=== PATIENT | female | born 1975 | race African-American/Black ===

== ENCOUNTER 2020-01-22 22:58 | Inpatient (IN) | payer MEDICAID ==
--- NOTE | 2020-01-22 23:21 | ED ---
Psychiatric Complaint - HPI Summary HPI Summary: Patient is a 44 y/o F presenting to the ED via EMS on a code 941 for a psychiatric complaint. Patient endorses self-harming in the last day and has a laceration on the left forearm which she notes self-inflicting on 01/21/20. Currently, she expresses SI and auditory hallucinations. She has a plan to use a knife or "anything she has" to harm herself. She notes an attempt to commit suicide in the past. Patient also describes hearing "voices" that are telling her to harm herself. No aggravating or alleviating factors are reported. PMHx is significant for DM. PSHx is significant for right leg surgery and hernia repair. FMHx is unknown because patient is adopted. Patient admits tobacco use, marijuana use, and alcohol use. She denies alcohol or drug use on 01/22/20. HISTORY OF PRESENT ILLNESS IS LIMITED DUE TO LEVEL 5 CAVEAT - POOR HISTORIAN. - History Of Current Complaint Chief Complaint: EDSuicidal Time Seen by Provider: 01/22/20 23:18 Hx Obtained From: Patient Hx From Patient Unobtainable Due To: Other - LEVEL 5 CAVEAT - POOR HISTORIAN Onset/Duration: Sudden Onset, Still Present Timing: Constant Severity Initially: Moderate Severity Currently: Moderate Aggravating Factor(s): Nothing Alleviating Factor(s): Nothing Associated Signs And Symptoms: Positive: Hallucinating - Auditory Has Suicidal: Reports: Thoughts, With A Plan, Has Prior Attempt(s) - Allergies/Home Medications Allergies/Adverse Reactions: Allergies Allergy/AdvReac Type Severity Reaction Status Date / Time Unable to Assess Allergy Verified 01/23/20 00:41 Home Medications: Home Medications Unobtainable 01/23/20 [History Confirmed 01/23/20] PMH/Surg Hx/FS Hx/Imm Hx Previously Healthy: No - LIMITED DUE TO LEVEL 5 CAVEAT - POOR HISTORIAN. Endocrine/Hematology History: Reports: Hx Diabetes Sensory History: Denies: Hx Legally Blind, Hx Deafness Opthamlomology History: Denies: Hx Legally Blind EENT History: Denies: Hx Deafness - Surgical History Surgical History: Yes Surgery Procedure, Year, and Place: Right leg surgery with dell placement. Hernia repair Infectious Disease History: No Infectious Disease History: Denies: Traveled Outside the [place] in Last 30 Days - Family History Known Family History: Positive: Unknown - Adopted - Social History Occupation: Unemployed Alcohol Use: Weekly Hx Substance Use: Yes Substance Use Type: Reports: Marijuana Hx Tobacco Use: Yes Smoking Status (MU): Heavy Every Day Tobacco Smoker Review of Systems - ROS Summary Review of Systems Summary: No Home Medications Positive: Other - Positive laceration on the left forearm Psychological: Other - Positive SI and auditory hallucinations All Other Systems Reviewed And Are Negative: No - Comments Additional Review of Systems Comments: REVIEW OF SYSTEMS IS LIMITED DUE TO LEVEL 5 CAVEAT - POOR HISTORIAN. Physical Exam - Summary Physical Exam Summary: General: Well-developed, Morbidly Obese Female. No acute distress. Patient is a poor historian. HEENT: Normocephalic, Atraumatic. Eyes: Conjuctiva normal, PERRL. Oropharynx: Clear, mucous membranes moist, (-) exudates. Neck: Soft, FROM, (-) lymphadenopathy, (-) thyromegaly, (-) JVD. Cardiovascular: Normal sinus rhythm, (-) murmur. Lungs: Clear to auscultation bilaterally (-) wheezes, (-) rales, (-) rhonchi. Abdomen: Soft, non-tender, non-distended, (-) organomegaly, normal bowel sounds. Back: (-) CVA tenderness Extremities: No edema. Skin: Warm, dry, (-) rash. Neuro: Alert and oriented x3, moves all extremities equally. No ataxia. No gait disturbance. No sensory deficit. Normal strength, normal sensation. Psychiatric: Mood normal, odd affect. Triage Information Reviewed: Yes Vital Signs On Initial Exam: Initial Vitals Temp Pulse Resp BP Pulse Ox 97.6 F 96 18 135/96 98 01/22/20 23:03 01/22/20 23:03 01/22/20 23:03 01/22/20 23:03 01/22/20 23:03 Vital Signs Reviewed: Yes Completion Of Physical Exam Limited Due To: Level 5 Procedures - Sedation Patient Received Moderate/Deep Sedation with Procedure: No Diagnostics - Vital Signs Vital Signs Temp Pulse Resp BP Pulse Ox 01/22/20 23:03 97.6 F 96 18 135/96 98 - Laboratory Result Diagrams: 01/22/20 23:58 01/22/20 23:58 Lab Statement: Any lab studies that have been ordered have been reviewed, and results considered in the medical decision making process. Re-Evaluation - Re-Evaluation First Eval Re-Evaluation Time: 23:30 Change: Unchanged Comment: At 23:30, patient is medically cleared for a mental health evaluation. Course/Dx - Course Course Of Treatment: 44-year-old female presents from respite home with suicidal ideation. Patient states she has been having thoughts of hurting herself and voices telling her to do that. She does have a history of suicide attempt. Has a 5 cm laceration of her left wrist which she states was from yesterday. She is a very poor historian. History of schizophrenia. Unsure how long she's been at the respite home. Unsure what medications she takes. She has an odd affect. Healing laceration on her left arm. Workup demonstrates no significant abnormality. Patient seen by mental health telecommunications project manager. Accepted for admission by Dr. Strong. - Differential Dx/Clinical Impression Provider Diagnosis: Tobacco use, Schizophrenia - Physician Notifications Discussed Care Of Patient With: Jessie Strong - At 02:00, telecommunications project manager reports that the patients case was reviewed by Dr. Jessie Strong who will admit the patient to [facility] with a diagnosis of schizophrenia. Time Discussed With Above Provider: 02:00 Instructed by Provider To: Admit As Inpatient Discharge ED - Sign-Out/Discharge Documenting (check all that apply): Patient Departure - Admit - Discharge Plan Condition: Stable Disposition: PSYCHIATRIC FACILITY-[facility] Referrals: [facility] [Outside] - Attestation Statements Document Initiated by Scribe: Yes Documenting Scribe: Richa Maravilla Provider For Whom Scribe is Documenting (Include Credential): Meera Gautam MD [employer] Attestation: Richa Durant, scribed for Meera Gautam MD on 01/23/20 at 0215. Status of Scribe Document: Ready
[2020-01-22 23:49] LABS: Urine Appearance Clear; Urine Bilirubin Negative (Negative); Urine Blood Negative (Negative); Urine Color Straw; Urine Glucose 3+(>=500 mg/dL) (Negative); Urine Ketones Trace (Negative); Urine Nitrite Negative (Negative); Urine Protein Negative (Negative); Urine Specific Gravity 1.003 (1.010-1.030); Urine Urobilinogen Negative (Negative)
[2020-01-23 00:15] LABS: Urine Benzodiazepine Screen None Detected (None Detect); Urine Opiates Screen None Detected (None Detect)
[2020-01-23 00:17] LABS: ABS Basophils 0.1 10^3/ul (0-0.2); ABS Eosinophils 0.2 10^3/ul (0-0.6); ABS Lymphocytes 2.2 10^3/ul (1.0-4.8); ABS Monocytes 0.6 10^3/ul (0-0.8); Hematocrit 34 % (35-47); Hemoglobin 11.1 g/dL (12.0-16.0); Mean Corpuscular HGB Conc 33 g/dL (31-36); Mean Corpuscular Hemoglobin 28 pg (27-31); Mean Corpuscular Volume 85 fL (80-97); Mean Platelet Volume 7.5 fL (7.4-10.4); Platelet Count 230 10^3/uL (150-450); Red Blood Count 3.96 10^6 /uL (3.70-4.87); Red Cell Distribution Width 14 % (10-15)
[2020-01-23 00:29] LABS: ALT 10 U/L (7-52); AST 12 U/L (13-39); Albumin 3.9 g/dL (3.2-5.2); Albumin/Globulin Ratio 1.5 (1-3); Alkaline Phosphatase 76 U/L (34-104); Anion Gap 9 mmol/L (2-11); BUN/Creatinine Ratio 22.6 (8-20); Blood Urea Nitrogen 19 mg/dL (6-24); CO2 Carbon Dioxide 25 mmol/L (22-32); Calcium 9.3 mg/dL (8.6-10.3); Chloride 97 mmol/L (101-111); EGFR Non-African American 74.4 (>60); Globulin 2.6 g/dL (2-4); Glucose 217 mg/dL (70-100); Sodium 131 mmol/L (135-145); Total Protein 6.5 g/dL (6.4-8.9)
[2020-01-23 00:36] LABS: HCG Pregnancy < 0.60 mIU/mL
[2020-01-23 02:01] LABS: Acetaminophen < 15 mcg/mL; Alcohol < 10 mg/dL (<10); Salicylate < 2.50 mg/dL (<30)
[2020-01-23 02:16] LABS: TSH (Thyroid Stimulating Horm) 15.14 mcIU/mL (0.34-5.60)
[2020-01-23] MEDS ORDERED: Al Hydrox/Mg Hydrox/Simet LIQ* 30 ML UDC PO PRN (02:47)
[2020-01-23] MEDS ORDERED: Acetaminophen TAB* 325 MG PO PRN (02:47)
[2020-01-23] MEDS ORDERED: Nicotine* 2MG (FRUIT FLAVOR) GUM PO PRN (02:47)
[2020-01-23] MEDS: Vitamin THERAPEUTIC TAB PO SCH (08:43)
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
[2020-01-23] MEDS ORDERED: hydrOXYzine HCL TAB* 50 MG PO PRN (10:46)
[2020-01-23] MEDS ORDERED: PAROXETINE HCL 40 MG PO SCH (11:00)
[2020-01-23] MEDS ORDERED: Divalproex ER TAB(*) 500 MG PO SCH (11:00)
[2020-01-23] MEDS: busPIRone TAB* 10 MG PO SCH ×2 (11:52→20:20)
[2020-01-23] MEDS: Ascorbic Acid TAB* 500 MG PO SCH (11:52)
[2020-01-23] MEDS: Pantoprazole TAB * 40 MG TAB PO SCH (11:53)
[2020-01-23] MEDS: Levothyroxine TAB* 88 MCG TAB PO SCH (11:53)
[2020-01-23] MEDS: Divalproex ER TAB(*) 250 MG PO SCH (11:53)
[2020-01-23] MEDS: QUEtiapine TAB* 300 MG PO SCH (11:53)
[2020-01-23] MEDS: amLODIPine TAB* 5 MG PO SCH (11:53)
[2020-01-23] MEDS: Ferrous Sulfate TAB* 325 MG PO SCH (11:53)
[2020-01-23] MEDS: CMCS:Venlafaxine TAB (NF) 25 MG TAB PO SCH (11:54)
[2020-01-23] MEDS: Nicotine PATCH 14 MG/24 HR* PATCH TRANSDERM SCH (11:55)
[2020-01-23] MEDS: Norethindrone (NF) 0.35 MG TAB PO SCH (11:55)
[2020-01-23] MEDS ORDERED: Polyethylene Glycol 3350* 17 GM PACKET PO PRN (14:10)
[2020-01-23] MEDS: metFORMIN* 1,000 MG TAB PO SCH (18:09)
[2020-01-23] MEDS: QUEtiapine TAB* 100 MG PO SCH (20:19)
[2020-01-23] MEDS: Dicyclomine CAP* 10 MG PO SCH (20:20)
[2020-01-23] MEDS: Naproxen TAB* 375 MG PO SCH (20:20)
[2020-01-23] MEDS: Mirtazapine TAB* 15 MG PO SCH (20:20)
[2020-01-23] MEDS: Divalproex ER TAB(*) 500 MG PO SCH (20:21)
[2020-01-24] MEDS: QUEtiapine TAB* 300 MG PO SCH (08:41)
[2020-01-24] MEDS: CMCS:Venlafaxine TAB (NF) 25 MG TAB PO SCH (08:41)
[2020-01-24] MEDS: amLODIPine TAB* 5 MG PO SCH (08:41)
[2020-01-24] MEDS: Levothyroxine TAB* 88 MCG TAB PO SCH (08:42)
[2020-01-24] MEDS: busPIRone TAB* 10 MG PO SCH ×2 (08:42→21:08)
[2020-01-24] MEDS: Naproxen TAB* 375 MG PO SCH ×2 (08:42→21:07)
[2020-01-24] MEDS: Divalproex ER TAB(*) 250 MG PO SCH (08:42)
[2020-01-24] MEDS: Vitamin THERAPEUTIC TAB PO SCH (08:42)
[2020-01-24] MEDS: Ascorbic Acid TAB* 500 MG PO SCH (08:42)
[2020-01-24] MEDS: Ferrous Sulfate TAB* 325 MG PO SCH (08:42)
[2020-01-24] MEDS: Pantoprazole TAB * 40 MG TAB PO SCH (08:43)
[2020-01-24] MEDS: Dicyclomine CAP* 10 MG PO SCH ×2 (08:43→21:07)
[2020-01-24] MEDS: metFORMIN* 1,000 MG TAB PO SCH ×2 (08:44→18:28)
[2020-01-24] MEDS: Nicotine PATCH 14 MG/24 HR* PATCH TRANSDERM SCH (08:49)
[2020-01-24] MEDS: Nicotine Patch Removal NOTE FOLLOW UP SCH (08:53)
[2020-01-24] MEDS: Norethindrone (NF) 0.35 MG TAB PO SCH (08:54)
[2020-01-24] MEDS ORDERED: PARoxetine HCL TAB* 20 MG PO SCH (09:00)
--- NOTE | 2020-01-24 09:53 | PN ---
Subjective - Subjective Date of Service: 01/24/20 Service Type: 10553 Hosp care 35 min high complexity Subjective: Nursing Report: Patient was visible on unit, no behavioral incidents. Slept 6.5hrs . Attending group activities. CC: "I feel better today This patient was seen and evaluated today. She reported she feels safe on the unit and is interacting with peers. She reported having adequate appetite and sleep. The patient reports attending day groups. Per nursing no behavioral issues or overnight events reported. Patient reported that she is tolerating medications without side effects. Objective - General Observations Appearance: Disheveled Appears Stated Age: Yes Stature: WNL Posture: Slumped Eye Contact: Avoidant Behavior/Activity: Peculiar - Interaction Observations Attitude Towards Examiner: Cooperative Stated Mood: Anxious Affect: Restricted Speech Pattern/Tone: Normal Volume Thought Process: [place] Perception: WNL Thought Content: WNL Thought Process: Lethality: Passive Wish Hallucination Type: Auditory - Cognitive Function Orientation: A&O x 4 Level of Consciousness: Awake Estimated Intelligence: MR Range - Medication Compliance Cooperative with Inpatient Medication Regimen: Yes - Group Participation Participates in Group Activities: Yes Assessment - Assessment Merits Inpatient Hospitalization: For Immediate Safety Clinical Impression: 44 year old Female with a history of schizophrenia and bipolar disorder and Intellectual disability presented to the emergency department by police after she recently made a suicide attempt by cutting her wrist and was admitted to the [facility] at [facility]. Plan - Plan Treatment Plan: Name: CRYSTAL ESPINOZA Birthdate: 1975 [id number] #Q30 minute observation with staff pass. # QTc 448 # The patient requires psychiatric inpatient admission at this time to assure safety, receive treatment and work toward stabilization. # B-HCG was ordered and results are negative. # Collateral information was obtained # Collaboration with Social Work # Increase Effexor 75mg po daily # Decrease paxil to 10mg po daily with plan to discontinue #VA level 76 # Medicine recommendations include encourage fluid intake and increase levothyroxine to 100mcg # Ammonia level 55 Tobacco use disorder: nicotine supplement offered and put in place. #Goals before discharge include: Psychiatric Stabilization Tentative discharge Tuesday can return to [facility] Continued Medication Management: Continue Outpt Medication Medications: Current Medications Acetaminophen (Tylenol Tab*) 650 mg PO Q4H PRN PRN Reason: PAIN or TEMP > 101 F Al Hydrox/Mg Hydrox/Simethicone (Maalox Plus*) 30 ml PO Q4H PRN PRN Reason: INDIGESTION Amlodipine Besylate (Norvasc Tab*) 10 mg PO DAILY [facility] Last Admin: 01/24/20 08:41 Dose: 10 mg Ascorbic Acid (Vitamin C Tab*) 500 mg PO DAILY [facility] Last Admin: 01/24/20 08:42 Dose: 500 mg Buspirone HCl (Buspar Tab*) 10 mg PO BID [facility] Last Admin: 01/24/20 08:42 Dose: 10 mg Dicyclomine HCl (Bentyl Cap*) 10 mg PO BID [facility] Last Admin: 01/24/20 08:43 Dose: 10 mg Divalproex Sodium (Depakote Er Tab(*)) 250 mg PO DAILY [facility] Last Admin: 01/24/20 08:42 Dose: 250 mg Divalproex Sodium (Depakote Er Tab(*)) 500 mg PO BEDTIME [facility] Last Admin: 01/23/20 20:21 Dose: 500 mg Ferrous Sulfate (Ferrous Sulfate Tab*) 325 mg PO DAILY [facility] Last Admin: 01/24/20 08:42 Dose: 325 mg Hydroxyzine HCl (Atarax Tab*) 50 mg PO Q6H PRN PRN Reason: .ANXIETY Levothyroxine Sodium (Synthroid Tab*) 88 mcg PO DAILY@0600 [facility] Last Admin: 01/24/20 08:42 Dose: 88 mcg Metformin HCl (Glucophage*) 1,000 mg PO BID@0800,1800 [facility] Last Admin: 01/24/20 08:44 Dose: 1,000 mg Metoprolol Succinate (Toprol Xl Tab*) 25 mg PO DAILY [facility] Mirtazapine (Remeron Tab*) 15 mg PO BEDTIME [facility] Last Admin: 01/23/20 20:20 Dose: 15 mg Multivitamins (Theragran Tab*) 1 tab PO DAILY [facility] Last Admin: 01/24/20 08:42 Dose: 1 tab Naproxen (Naprosyn Tab*) 375 mg PO BID [facility] Last Admin: 01/24/20 08:42 Dose: 375 mg Nicotine (Nicotine Patch 14 Mg/24 Hr*) 1 patch TRANSDERM DAILY [facility] Last Admin: 01/24/20 08:49 Dose: 1 patch Nicotine Polacrilex (Nicotine Gum*) 2 mg PO Q2H PRN PRN Reason: CRAVINGS Norethindrone (Amirah (Nf)) 0.35 mg PO DAILY [facility] Last Admin: 01/24/20 08:54 Dose: Not Given Pantoprazole Sodium (Protonix Tab*) 40 mg PO DAILY [facility] Last Admin: 01/24/20 08:43 Dose: 40 mg Paroxetine HCl (Paxil Tab*) 20 mg PO DAILY [facility] Last Admin: 01/24/20 08:54 Dose: 20 mg Pharmacy Profile Note (Nicotine Patch Removal Note*) 1 note FOLLOW UP 0600 [facility] Last Admin: 01/24/20 08:53 Dose: Not Given Polyethylene Glycol/Electrolytes (Miralax (17 Gm Dose Larry)) 17 gm PO DAILY PRN PRN Reason: CONSTIPATION Quetiapine Fumarate (Seroquel Tab*) 300 mg PO DAILY [facility] Last Admin: 01/24/20 08:41 Dose: 300 mg Quetiapine Fumarate (Seroquel Tab*) 400 mg PO BEDTIME [facility] Last Admin: 01/23/20 20:19 Dose: 400 mg Venlafaxine HCl (Effexor Tab (Nf)) 50 mg PO DAILY [facility] Last Admin: 01/24/20 08:41 Dose: 50 mg - Discharge Plan Discharge Plan: Inpatient Hospitalization
[2020-01-24] MEDS: Metoprolol Succinate XL TAB* 25 MG PO SCH (11:47)
[2020-01-24] MEDS: Mirtazapine TAB* 15 MG PO SCH (21:07)
[2020-01-24] MEDS: QUEtiapine TAB* 100 MG PO SCH (21:07)
[2020-01-24] MEDS: Divalproex ER TAB(*) 500 MG PO SCH (21:08)
[2020-01-25] MEDS ORDERED: PARoxetine HCL TAB* 20 MG PO SCH (09:00)
[2020-01-25 09:24] LABS: HDL Cholesterol 51.2 mg/dL
[2020-01-25] MEDS: Norethindrone (NF) 0.35 MG TAB PO SCH (10:38)
[2020-01-25] MEDS: Naproxen TAB* 375 MG PO SCH ×2 (10:38→20:51)
[2020-01-25] MEDS: Venlafaxine EXT RELEASE CAP* 75 MG PO SCH (10:38)
[2020-01-25] MEDS: Metoprolol Succinate XL TAB* 25 MG PO SCH (10:38)
[2020-01-25] MEDS: QUEtiapine TAB* 300 MG PO SCH (10:38)
[2020-01-25] MEDS: Ascorbic Acid TAB* 500 MG PO SCH (10:38)
[2020-01-25] MEDS: Ferrous Sulfate TAB* 325 MG PO SCH (10:38)
[2020-01-25] MEDS: Nicotine PATCH 14 MG/24 HR* PATCH TRANSDERM SCH (10:38)
[2020-01-25] MEDS: Levothyroxine TAB* 100 MCG TAB PO SCH (10:39)
[2020-01-25] MEDS: Divalproex ER TAB(*) 250 MG PO SCH (10:40)
[2020-01-25] MEDS: busPIRone TAB* 10 MG PO SCH ×2 (10:40→20:52)
[2020-01-25] MEDS: Pantoprazole TAB * 40 MG TAB PO SCH (10:40)
[2020-01-25] MEDS: Vitamin THERAPEUTIC TAB PO SCH (10:41)
[2020-01-25] MEDS: Dicyclomine CAP* 10 MG PO SCH ×2 (10:41→20:51)
[2020-01-25] MEDS: amLODIPine TAB* 5 MG PO SCH (10:41)
[2020-01-25] MEDS: metFORMIN* 1,000 MG TAB PO SCH ×2 (10:43→17:13)
[2020-01-25] MEDS: Nicotine Patch Removal NOTE FOLLOW UP SCH (10:43)
--- NOTE | 2020-01-25 13:30 | PN ---
Subjective - Subjective Date of Service: 01/25/20 Service Type: 71975 Hosp care 35 min high complexity Subjective: Nursing Report: Patient was visible on unit, no behavioral incidents. Slept overnight 7 hours. She is attending group activities. CC: "I am doing better" This patient was seen and evaluated today. She reported feeling safe on the unit and is interacting with staff. She reported having adequate appetite and sleep. The patient reports attending day groups. Per nursing no behavioral issues or overnight events reported. Patient reported that she is tolerating medications without side effects. She is happy with medication changes. Objective - General Observations Appearance: Neat Appears Stated Age: Yes Stature: WNL Posture: WNL Eye Contact: Average Behavior/Activity: WNL - Interaction Observations Attitude Towards Examiner: Cooperative Stated Mood: Euthymic Affect: Restricted Speech Pattern/Tone: Appropriate Thought Process: Coherent Perception: WNL Thought Content: WNL Hallucination Type: None Delusion Type: None - Cognitive Function Orientation: A&O x 4 Level of Consciousness: Awake Estimated Intelligence: MR Range - Medication Compliance Cooperative with Inpatient Medication Regimen: Yes - Group Participation Participates in Group Activities: Yes Assessment - Assessment Merits Inpatient Hospitalization: For Immediate Safety Clinical Impression: 44 year old Female with a history of schizophrenia and bipolar disorder and Intellectual disability presented to the emergency department by police after she recently made a suicide attempt by cutting her wrist and was admitted to the B[facility] at [facility]. Plan - Plan Treatment Plan: Name: CRYSTAL ESPINOZA Birthdate: 1975 [id number] #Q30 minute observation with staff pass. # QTc 448 # The patient requires psychiatric inpatient admission at this time to assure safety, receive treatment and work toward stabilization. # B-HCG was ordered and results are negative. # Collateral information was obtained # Collaboration with Social Work # Increase Effexor 75mg po daily # Discontinue paxil #VA level 76 # Medicine recommendations include encourage fluid intake and increase levothyroxine to 100mcg # Ammonia level 55 Tobacco use disorder: nicotine supplement offered and put in place. #Goals before discharge include: Psychiatric Stabilization Tentative discharge Tuesday can return to [facility] Continued Medication Management: Continue Outpt Medication Medications: Current Medications Acetaminophen (Tylenol Tab*) 650 mg PO Q4H PRN PRN Reason: PAIN or TEMP > 101 F Al Hydrox/Mg Hydrox/Simethicone (Maalox Plus*) 30 ml PO Q4H PRN PRN Reason: INDIGESTION Amlodipine Besylate (Norvasc Tab*) 10 mg PO DAILY [facility] Last Admin: 01/25/20 10:41 Dose: 5 mg Ascorbic Acid (Vitamin C Tab*) 500 mg PO DAILY [facility] Last Admin: 01/25/20 10:38 Dose: 500 mg Buspirone HCl (Buspar Tab*) 10 mg PO BID [facility] Last Admin: 01/25/20 10:40 Dose: 10 mg Dicyclomine HCl (Bentyl Cap*) 10 mg PO BID [facility] Last Admin: 01/25/20 10:41 Dose: 10 mg Divalproex Sodium (Depakote Er Tab(*)) 250 mg PO DAILY [facility] Last Admin: 01/25/20 10:40 Dose: 250 mg Divalproex Sodium (Depakote Er Tab(*)) 500 mg PO BEDTIME [facility] Last Admin: 01/24/20 21:08 Dose: 500 mg Ferrous Sulfate (Ferrous Sulfate Tab*) 325 mg PO DAILY [facility] Last Admin: 01/25/20 10:38 Dose: 325 mg Hydroxyzine HCl (Atarax Tab*) 50 mg PO Q6H PRN PRN Reason: .ANXIETY Levothyroxine Sodium (Synthroid Tab*) 100 mcg PO DAILY@0600 [facility] Last Admin: 01/25/20 10:39 Dose: 100 mcg Metformin HCl (Glucophage*) 1,000 mg PO BID@0800,1800 [facility] Last Admin: 01/25/20 10:43 Dose: 1,000 mg Metoprolol Succinate (Toprol Xl Tab*) 25 mg PO DAILY [facility] Last Admin: 01/25/20 10:38 Dose: 25 mg Mirtazapine (Remeron Tab*) 15 mg PO BEDTIME [facility] Last Admin: 01/24/20 21:07 Dose: 15 mg Multivitamins (Theragran Tab*) 1 tab PO DAILY [facility] Last Admin: 01/25/20 10:41 Dose: 1 tab Naproxen (Naprosyn Tab*) 375 mg PO BID [facility] Last Admin: 01/25/20 10:38 Dose: 375 mg Nicotine (Nicotine Patch 14 Mg/24 Hr*) 1 patch TRANSDERM DAILY [facility] Last Admin: 01/25/20 10:38 Dose: 1 patch Nicotine Polacrilex (Nicotine Gum*) 2 mg PO Q2H PRN PRN Reason: CRAVINGS Norethindrone (Amirah (Nf)) 0.35 mg PO DAILY [facility] Last Admin: 01/25/20 10:38 Dose: Not Given Pantoprazole Sodium (Protonix Tab*) 40 mg PO DAILY [facility] Last Admin: 01/25/20 10:40 Dose: 40 mg Paroxetine HCl (Paxil Tab*) 10 mg PO DAILY [facility] Last Admin: 01/25/20 10:39 Dose: 10 mg Pharmacy Profile Note (Nicotine Patch Removal Note*) 1 note FOLLOW UP 0600 [facility] Last Admin: 01/25/20 10:43 Dose: Not Given Polyethylene Glycol/Electrolytes (Miralax (17 Gm Dose Larry)) 17 gm PO DAILY PRN PRN Reason: CONSTIPATION Quetiapine Fumarate (Seroquel Tab*) 300 mg PO DAILY [facility] Last Admin: 01/25/20 10:38 Dose: 300 mg Quetiapine Fumarate (Seroquel Tab*) 400 mg PO BEDTIME [facility] Last Admin: 01/24/20 21:07 Dose: 400 mg Venlafaxine HCl (Effexor Xr Cap*) 75 mg PO DAILY [facility] Last Admin: 01/25/20 10:38 Dose: 75 mg - Discharge Plan Discharge Plan: Inpatient Hospitalization
[2020-01-25] MEDS: QUEtiapine TAB* 100 MG PO SCH (20:51)
[2020-01-25] MEDS: Divalproex ER TAB(*) 500 MG PO SCH (20:51)
[2020-01-25] MEDS: Mirtazapine TAB* 15 MG PO SCH (20:52)
[2020-01-26] MEDS: Ascorbic Acid TAB* 500 MG PO SCH (08:25)
[2020-01-26] MEDS: Levothyroxine TAB* 100 MCG TAB PO SCH (08:25)
[2020-01-26] MEDS: Pantoprazole TAB * 40 MG TAB PO SCH (08:25)
[2020-01-26] MEDS: Divalproex ER TAB(*) 250 MG PO SCH (08:25)
[2020-01-26] MEDS: Naproxen TAB* 375 MG PO SCH ×2 (08:25→21:07)
[2020-01-26] MEDS: busPIRone TAB* 10 MG PO SCH ×2 (08:25→21:08)
[2020-01-26] MEDS: Vitamin THERAPEUTIC TAB PO SCH (08:25)
[2020-01-26] MEDS: QUEtiapine TAB* 300 MG PO SCH (08:25)
[2020-01-26] MEDS: Venlafaxine EXT RELEASE CAP* 75 MG PO SCH (08:26)
[2020-01-26] MEDS: amLODIPine TAB* 5 MG PO SCH (08:26)
[2020-01-26] MEDS: Ferrous Sulfate TAB* 325 MG PO SCH (08:26)
[2020-01-26] MEDS: Dicyclomine CAP* 10 MG PO SCH ×2 (08:26→21:06)
[2020-01-26] MEDS: Metoprolol Succinate XL TAB* 25 MG PO SCH (08:26)
[2020-01-26] MEDS: metFORMIN* 1,000 MG TAB PO SCH ×2 (08:34→17:42)
[2020-01-26] MEDS: Nicotine Patch Removal NOTE FOLLOW UP SCH (08:48)
[2020-01-26] MEDS: Norethindrone (NF) 0.35 MG TAB PO SCH (08:48)
[2020-01-26] MEDS: Nicotine PATCH 14 MG/24 HR* PATCH TRANSDERM SCH (09:02)
--- NOTE | 2020-01-26 17:23 | PN ---
Subjective - Subjective Service Type: 30492 Hosp care 25 min moderate complexity Subjective: The patient is a 44 year old Female with history of Schizophrenia , Bipolar and Intellectual disability. She is seen today for medication management and follow up. She described her mood as improving . She denied hopelessness and worthlessness. She denied current suicidal or homicidal ideation. She observed to be painting some pictures. She is cooperative with evaluation. No evidence of psychosis or delusion. She related well with the senior grant writer. She reported good appetite and denied constipation. She compliant with medications. No behavioral problems. She denied side effects to her current medications. No mood swings or racing thoughts. Objective - General Observations Appearance: Neat Appears Stated Age: Yes Stature: Short Posture: WNL Eye Contact: Average Behavior/Activity: WNL - Interaction Observations Attitude Towards Examiner: Cooperative Stated Mood: Euthymic Affect: Full Speech Pattern/Tone: Clear Thought Process: Coherent Perception: WNL Thought Content: WNL Hallucination Type: None Delusion Type: None - Cognitive Function Orientation: A&O x 4 Level of Consciousness: Awake Cognition: WNL Estimated Intelligence: Borderline Range Insight: WNL Judgment Within Normal Limits: Yes - Medication Compliance Cooperative with Inpatient Medication Regimen: Yes - Group Participation Participates in Group Activities: Yes - Elaboration on Positive Findings Positive MSE Findings: She denied current suicidal or homicidal ideations. Assessment - Assessment Clinical Impression: 44 year old Female with a history of schizophrenia and bipolar disorder and Intellectual disability presented to the emergency department by police after she recently made a suicide attempt by cutting her wrist and was admitted to the BSU at [facility]. BSU: Problem List - Patient Problems (1) Major depression with psychotic features Current Visit: Yes Status: Acute Code(s): F32.3 - MAJOR DEPRESSV DISORD, SINGLE EPSD, SEVERE W PSYCH FEATURES SNOMED Code(s): 346188240 Plan - Plan Treatment Plan: Name: CRYSTAL ESPINOZA Birthdate: 1975 [id number] #Q30 minute observation with staff pass. # QTc 448 # The patient requires psychiatric inpatient admission at this time to assure safety, receive treatment and work toward stabilization. # B-HCG was ordered and results are negative. # Collateral information was obtained # Collaboration with Social Work # Increase Effexor 75mg po daily # Discontinue paxil #VA level 76 # Medicine recommendations include encourage fluid intake and increase levothyroxine to 100mcg # Ammonia level 55 Tobacco use disorder: nicotine supplement offered and put in place. #Goals before discharge include: Psychiatric Stabilization Tentative discharge Tuesday can return to [facility] Medications: Current Medications Acetaminophen (Tylenol Tab*) 650 mg PO Q4H PRN PRN Reason: PAIN or TEMP > 101 F Al Hydrox/Mg Hydrox/Simethicone (Maalox Plus*) 30 ml PO Q4H PRN PRN Reason: INDIGESTION Amlodipine Besylate (Norvasc Tab*) 10 mg PO DAILY [facility] Last Admin: 01/26/20 08:26 Dose: 10 mg Ascorbic Acid (Vitamin C Tab*) 500 mg PO DAILY [facility] Last Admin: 01/26/20 08:25 Dose: 500 mg Buspirone HCl (Buspar Tab*) 10 mg PO BID [facility] Last Admin: 01/26/20 08:25 Dose: 10 mg Dicyclomine HCl (Bentyl Cap*) 10 mg PO BID [facility] Last Admin: 01/26/20 08:26 Dose: 10 mg Divalproex Sodium (Depakote Er Tab(*)) 250 mg PO DAILY [facility] Last Admin: 01/26/20 08:25 Dose: 250 mg Divalproex Sodium (Depakote Er Tab(*)) 500 mg PO BEDTIME [facility] Last Admin: 01/25/20 20:51 Dose: 500 mg Ferrous Sulfate (Ferrous Sulfate Tab*) 325 mg PO DAILY [facility] Last Admin: 01/26/20 08:26 Dose: 325 mg Hydroxyzine HCl (Atarax Tab*) 50 mg PO Q6H PRN PRN Reason: .ANXIETY Levothyroxine Sodium (Synthroid Tab*) 100 mcg PO DAILY@0600 [facility] Last Admin: 01/26/20 08:25 Dose: 100 mcg Metformin HCl (Glucophage*) 1,000 mg PO BID@0800,1800 [facility] Last Admin: 01/26/20 08:34 Dose: 1,000 mg Metoprolol Succinate (Toprol Xl Tab*) 25 mg PO DAILY [facility] Last Admin: 01/26/20 08:26 Dose: 25 mg Mirtazapine (Remeron Tab*) 15 mg PO BEDTIME [facility] Last Admin: 01/25/20 20:52 Dose: 15 mg Multivitamins (Theragran Tab*) 1 tab PO DAILY [facility] Last Admin: 01/26/20 08:25 Dose: 1 tab Naproxen (Naprosyn Tab*) 375 mg PO BID [facility] Last Admin: 01/26/20 08:25 Dose: 375 mg Nicotine (Nicotine Patch 14 Mg/24 Hr*) 1 patch TRANSDERM DAILY [facility] Last Admin: 01/26/20 09:02 Dose: 1 patch Nicotine Polacrilex (Nicotine Gum*) 2 mg PO Q2H PRN PRN Reason: CRAVINGS Norethindrone (Amirah (Nf)) 0.35 mg PO DAILY [facility] Last Admin: 01/26/20 08:48 Dose: Not Given Pantoprazole Sodium (Protonix Tab*) 40 mg PO DAILY [facility] Last Admin: 01/26/20 08:25 Dose: 40 mg Pharmacy Profile Note (Nicotine Patch Removal Note*) 1 note FOLLOW UP 0600 [facility] Last Admin: 01/26/20 08:48 Dose: 1 note Polyethylene Glycol/Electrolytes (Miralax (17 Gm Dose Larry)) 17 gm PO DAILY PRN PRN Reason: CONSTIPATION Last Admin: 01/26/20 08:25 Dose: 17 gm Quetiapine Fumarate (Seroquel Tab*) 300 mg PO DAILY [facility] Last Admin: 01/26/20 08:25 Dose: 300 mg Quetiapine Fumarate (Seroquel Tab*) 400 mg PO BEDTIME [facility] Last Admin: 01/25/20 20:51 Dose: 400 mg Venlafaxine HCl (Effexor Xr Cap*) 75 mg PO DAILY [facility] Last Admin: 01/26/20 08:26 Dose: 75 mg - Discharge Plan Additional Comments: Continue current medication management
[2020-01-26] MEDS: Mirtazapine TAB* 15 MG PO SCH (21:06)
[2020-01-26] MEDS: QUEtiapine TAB* 100 MG PO SCH (21:06)
[2020-01-26] MEDS: Divalproex ER TAB(*) 500 MG PO SCH (21:08)
[2020-01-27] MEDS: Naproxen TAB* 375 MG PO SCH ×2 (08:29→20:33)
[2020-01-27] MEDS: Ascorbic Acid TAB* 500 MG PO SCH (08:30)
[2020-01-27] MEDS: Dicyclomine CAP* 10 MG PO SCH ×2 (08:30→20:33)
[2020-01-27] MEDS: busPIRone TAB* 10 MG PO SCH ×2 (08:30→20:34)
[2020-01-27] MEDS: Pantoprazole TAB * 40 MG TAB PO SCH (08:30)
[2020-01-27] MEDS: QUEtiapine TAB* 300 MG PO SCH (08:30)
[2020-01-27] MEDS: Ferrous Sulfate TAB* 325 MG PO SCH (08:30)
[2020-01-27] MEDS: Venlafaxine EXT RELEASE CAP* 75 MG PO SCH (08:30)
[2020-01-27] MEDS: Levothyroxine TAB* 100 MCG TAB PO SCH (08:30)
[2020-01-27] MEDS: Metoprolol Succinate XL TAB* 25 MG PO SCH (08:30)
[2020-01-27] MEDS: Vitamin THERAPEUTIC TAB PO SCH (08:30)
[2020-01-27] MEDS: Divalproex ER TAB(*) 250 MG PO SCH (08:30)
[2020-01-27] MEDS: amLODIPine TAB* 5 MG PO SCH (08:31)
[2020-01-27] MEDS: Nicotine PATCH 14 MG/24 HR* PATCH TRANSDERM SCH (08:31)
[2020-01-27] MEDS: Nicotine Patch Removal NOTE FOLLOW UP SCH (08:31)
[2020-01-27] MEDS: Norethindrone (NF) 0.35 MG TAB PO SCH (08:32)
[2020-01-27] MEDS: metFORMIN* 1,000 MG TAB PO SCH ×2 (08:33→18:40)
[2020-01-27] MEDS: Mirtazapine TAB* 15 MG PO SCH (20:34)
[2020-01-27] MEDS: Divalproex ER TAB(*) 500 MG PO SCH (20:34)
[2020-01-27] MEDS: QUEtiapine TAB* 100 MG PO SCH (20:34)
[2020-01-28 08:43] VITALS: BP 120/86
[2020-01-28] MEDS: Nicotine PATCH 14 MG/24 HR* PATCH TRANSDERM SCH (08:49)
[2020-01-28] MEDS: Ascorbic Acid TAB* 500 MG PO SCH (08:51)
[2020-01-28] MEDS: Metoprolol Succinate XL TAB* 25 MG PO SCH (08:51)
[2020-01-28] MEDS: busPIRone TAB* 10 MG PO SCH (08:51)
[2020-01-28] MEDS: Naproxen TAB* 375 MG PO SCH (08:51)
[2020-01-28] MEDS: Venlafaxine EXT RELEASE CAP* 75 MG PO SCH (08:52)
[2020-01-28] MEDS: Levothyroxine TAB* 100 MCG TAB PO SCH (08:52)
[2020-01-28] MEDS: Divalproex ER TAB(*) 250 MG PO SCH (08:52)
[2020-01-28] MEDS: Ferrous Sulfate TAB* 325 MG PO SCH (08:53)
[2020-01-28] MEDS: amLODIPine TAB* 5 MG PO SCH (08:53)
[2020-01-28] MEDS: Vitamin THERAPEUTIC TAB PO SCH (08:53)
[2020-01-28] MEDS: QUEtiapine TAB* 300 MG PO SCH (08:53)
[2020-01-28] MEDS: Pantoprazole TAB * 40 MG TAB PO SCH (08:54)
[2020-01-28] MEDS: Dicyclomine CAP* 10 MG PO SCH (08:54)
[2020-01-28] MEDS: Norethindrone (NF) 0.35 MG TAB PO SCH (09:53)
[2020-01-28] MEDS: Nicotine Patch Removal NOTE FOLLOW UP SCH (09:57)
[2020-01-28] MEDS: metFORMIN* 1,000 MG TAB PO SCH (10:16)
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
== END 2020-01-28 12:45 | disposition home or self-care (01) | DRG 751 ==
LOC: ED 22:58 → BSU 01-23 02:15
PROVIDERS: ADMIT Psychiatry & Neurology Psychiatry; ATTEND Psychiatry & Neurology Psychiatry
DX: F33.3 Major depressive disorder, recurrent, severe with psychotic symptoms (principal); F72 Severe intellectual disabilities; F20.9 Schizophrenia, unspecified; E11.9 Type 2 diabetes mellitus without complications; S61.512A Laceration without foreign body of left wrist, initial encounter; T14.91XA Suicide attempt, initial encounter; F31.9 Bipolar disorder, unspecified; F17.210 Nicotine dependence, cigarettes, uncomplicated; E03.9 Hypothyroidism, unspecified; G40.909 Epilepsy, unspecified, not intractable, without status epilepticus; Y92.099 Unspecified place in other non-institutional residence as the place of occurrence of the external cause; X78.1XXA Intentional self-harm by knife, initial encounter
CPT/HCPCS: 36415; 80053; 80061; 80164; 80307; 80320; 80329; 81003; 82140; 83036; 84443; 84702; 85025; 93005; 99222; 99232; 99233; 99238; 99283; A9270-GY; G0480

== ENCOUNTER 2020-02-01 21:49 | Inpatient (IN) | payer MEDICAID ==
[2020-02-01 22:21] LABS: ABS Basophils 0.1 10^3/ul (0-0.2); ABS Eosinophils 0.3 10^3/ul (0-0.6); ABS Lymphocytes 2.4 10^3/ul (1.0-4.8); ABS Monocytes 0.5 10^3/ul (0-0.8); ABS Neutrophils 6.2 10^3/ul (1.5-7.7); Eosinophil % 3.2 %; Hematocrit 36 % (35-47); Hemoglobin 11.7 g/dL (12.0-16.0); Lymphocyte % 25.6 %; Mean Corpuscular HGB Conc 33 g/dL (31-36); Mean Corpuscular Hemoglobin 28 pg (27-31); Mean Corpuscular Volume 85 fL (80-97); Mean Platelet Volume 7.4 fL (7.4-10.4); Nucleated Red Blood Cells % 0.1; Platelet Count 325 10^3/uL (150-450); Red Blood Count 4.21 10^6 /uL (3.70-4.87); Red Cell Distribution Width 14 % (10-15); White Blood Count 9.6 10^3/uL (3.5-10.8)
[2020-02-01 22:39] LABS: ALT 16 U/L (7-52); AST 13 U/L (13-39); Albumin 4.1 g/dL (3.2-5.2); Albumin/Globulin Ratio 1.4 (1-3); Alkaline Phosphatase 108 U/L (34-104); Anion Gap 11 mmol/L (2-11); BUN/Creatinine Ratio 23.9 (8-20); Blood Urea Nitrogen 22 mg/dL (6-24); CO2 Carbon Dioxide 24 mmol/L (22-32); Calcium 9.9 mg/dL (8.6-10.3); Chloride 98 mmol/L (101-111); EGFR Non-African American 66.9 (>60); Glucose 251 mg/dL (70-100); Potassium 3.8 mmol/L (3.5-5.0); Sodium 133 mmol/L (135-145); Total Protein 7.1 g/dL (6.4-8.9)
[2020-02-01 22:44] LABS: Acetaminophen < 15 mcg/mL; Alcohol < 10 mg/dL (<10); Salicylate < 2.50 mg/dL (<30)
[2020-02-01 22:46] LABS: HCG Pregnancy < 0.60 mIU/mL
--- NOTE | 2020-02-01 22:50 | ED ---
Psychiatric Complaint - HPI Summary HPI Summary: 44-year-old female presents with suicidal ideation today. States that she talked with her mom which is having increasing suicidal thoughts. She took a wire to her thigh to try to cut herself. She then told the people at the [facility] of her plan and was brought in 941. She denies any drug or alcohol use currently. Not any new medications. Does not currently have a therapist. She does not take any extra medications. She denies any other complaints. States she started feeling more and more depressed. - History Of Current Complaint Chief Complaint: EDMentalHealth Time Seen by Provider: 02/01/20 22:06 - Allergies/Home Medications Allergies/Adverse Reactions: Allergies Allergy/AdvReac Type Severity Reaction Status Date / Time No Known Allergies Allergy Verified 02/01/20 21:56 Home Medications: Home Medications Amlodipine Besylate [Norvasc] 10 mg PO DAILY 02/01/20 [History Confirmed ] Ascorbic Acid [Vitamin C] 500 mg PO DAILY 02/01/20 [History Confirmed 02/01/20] Dicyclomine CAP* [Bentyl CAP*] 10 mg PO BID 02/01/20 [History Confirmed 02/01/20 ] Divalproex ER TAB(*) [Depakote ER TAB(*)] 250 mg PO DAILY 02/01/20 [History Confirmed 02/01/20] Divalproex ER TAB(*) [Depakote ER TAB(*)] 500 mg PO BEDTIME 02/01/20 [History Confirmed 02/01/20] Ferrous Sulfate [Feosol] 325 mg PO DAILY 02/01/20 [History Confirmed 02/01/20] Levothyroxine Sodium [Synthroid] 100 mcg PO DAILY 02/01/20 [History Confirmed ] Metoprolol Succinate XL TAB* [Toprol XL TAB*] 25 mg PO DAILY 02/01/20 [History Confirmed 02/01/20] Nicotine [Nicotine Patch] 1 patch TOPICAL DAILY 02/01/20 [History Confirmed 01/17] QUEtiapine TAB* [Seroquel 300 MG TAB*] 300 mg PO DAILY 02/01/20 [History Confirmed 02/01/20] Quetiapine Fumarate [Seroquel Xr] 400 mg PO BEDTIME 02/01/20 [History Confirmed 02/01/20] Venlafaxine HCl [Effexor Xr] 75 mg PO DAILY 02/01/20 [History Confirmed 02/01/20 ] busPIRone TAB* [Buspar TAB*] 10 mg PO BID 02/01/20 [History Confirmed 02/01/20] PMH/Surg Hx/FS Hx/Imm Hx Endocrine/Hematology History: Reports: Hx Diabetes, Hx Thyroid Disease Cardiovascular History: Reports: Hx Hypertension GI History: Reports: Hx Gastroesophageal Reflux Disease Musculoskeletal History: Reports: Hx Arthritis Sensory History: Reports: Hx Contacts or Glasses Denies: Hx Legally Blind, Hx Deafness, Hx Hearing Aid Opthamlomology History: Reports: Hx Contacts or Glasses Denies: Hx Legally Blind Neurological History: Reports: Hx Migraine Psychiatric History: Reports: Hx Anxiety, Hx Depression, Hx Inpatient Treatment , Hx Community Mental Health Tx, Hx Schizophrenia, Hx Suicide Attempt - " I don' t know how many times but it was cutting" - Surgical History Surgery Procedure, Year, and Place: Right leg surgery with dell placement. Hernia repair Infectious Disease History: No Infectious Disease History: Denies: Traveled Outside the [place] in Last 30 Days - Family History Known Family History: Positive: Unknown - Adopted - Social History Alcohol Use: Occasionally Alcohol Amount: " Hx Substance Use: Yes Substance Use Type: Reports: None Substance Use Comment - Amount & Last Used: " I haven't smoked in a while" Hx Tobacco Use: Yes Smoking Status (MU): Heavy Every Day Tobacco Smoker Review of Systems Negative: Fever Negative: Chest Pain Negative: Shortness Of Breath Positive: Depressed All Other Systems Reviewed And Are Negative: Yes Physical Exam Triage Information Reviewed: Yes Vital Signs On Initial Exam: Initial Vitals Temp Pulse Resp BP Pulse Ox 97.4 F 112 16 141/98 97 02/01/20 21:51 02/01/20 21:51 02/01/20 21:51 02/01/20 21:51 02/01/20 21:51 Vital Signs Reviewed: Yes Appearance: Positive: Well-Appearing Skin: Positive: Warm, Dry, Other - abrasions to right thigh Head/Face: Positive: Normal Head/Face Inspection Eyes: Positive: Normal, Conjunctiva Clear ENT: Positive: Pharynx normal Respiratory/Lung Sounds: Positive: Clear to Auscultation, Breath Sounds Present Cardiovascular: Positive: Normal, RRR Musculoskeletal: Positive: Normal Neurological: Positive: Normal Psychiatric: Positive: Depressed Procedures - Sedation Patient Received Moderate/Deep Sedation with Procedure: No Diagnostics - Vital Signs Vital Signs Temp Pulse Resp BP Pulse Ox 02/01/20 21:51 97.4 F 112 16 141/98 97 - Laboratory Lab Results: Lab Results 02/01/20 Range/Units 22:12 WBC 9.6 (3.5-10.8) 10^3/uL RBC 4.21 (3.70-4.87) 10^6 /uL Hgb 11.7 L (12.0-16.0) g/dL Hct 36 (35-47) % MCV 85 (80-97) fL MCH 28 (27-31) pg MCHC 33 (31-36) g/dL RDW 14 (10-15) % Plt Count 325 (150-450) 10^3/uL MPV 7.4 (7.4-10.4) fL Neut % (Auto) 65.4 % Lymph % (Auto) 25.6 % [place] % (Auto) 5.1 % Eos % (Auto) 3.2 % Baso % (Auto) 0.7 % Absolute Neuts (auto) 6.2 (1.5-7.7) 10^3/ul Absolute Lymphs (auto) 2.4 (1.0-4.8) 10^3/ul Absolute Monos (auto) 0.5 (0-0.8) 10^3/ul Absolute Eos (auto) 0.3 (0-0.6) 10^3/ul Absolute Basos (auto) 0.1 (0-0.2) 10^3/ul Absolute Nucleated RBC 0.0 10^3/ul Nucleated RBC % 0.1 Result Diagrams: 02/01/20 22:12 02/01/20 22:12 Lab Statement: Any lab studies that have been ordered have been reviewed, and results considered in the medical decision making process. Course/Dx - Course Course Of Treatment: 44-year-old female presents with suicidal ideation today. States that she talked with her mom which is having increasing suicidal thoughts. She took a wire to her thigh to try to cut herself. She then told the people at the [facility] of her plan and was brought in 941. She denies any drug or alcohol use currently. Not any new medications. Does not currently have a therapist. She does not take any extra medications. She denies any other complaints. States she started feeling more and more depressed. On exam has abrasions noted to right thigh. She is medically clear for mental health. after mental health evaluation patient will be admitted. - Differential Dx/Clinical Impression Differential Diagnosis/HQI/PQRI: Positive: Anxiety, Depression, Suicidal Ideation Provider Diagnosis: Depression Discharge ED - Sign-Out/Discharge Documenting (check all that apply): Patient Departure - Discharge Plan Condition: Stable Disposition: PSYCHIATRIC FACILITY-[facility] Referrals: No Primary Care Phys,NOPCP [Primary Care Provider] - - Billing Disposition and Condition Condition: STABLE Disposition: Psychiatric Facility [facility]
[2020-02-01 23:36] LABS: Urine Appearance Cloudy; Urine Bilirubin Negative (Negative); Urine Blood Negative (Negative); Urine Color Yellow; Urine Glucose 1+(50 mg/dL) (Negative); Urine Ketones Trace (Negative); Urine Nitrite Negative (Negative); Urine Protein Negative (Negative); Urine Specific Gravity 1.009 (1.010-1.030); Urine Urobilinogen Negative (Negative)
[2020-02-01 23:39] LABS: Urine Bacteria 1+ (Absent); Urine Red Blood Cell Trace(0-2/hpf) (Absent); Urine Squamous Epithelial Cell Present (Absent); Urine White Blood Cell Trace(0-5/hpf) (Absent)
[2020-02-01 23:51] LABS: Urine Benzodiazepine Screen None Detected (None Detect); Urine Opiates Screen None Detected (None Detect)
[2020-02-02] MEDS ORDERED: Acetaminophen TAB* 325 MG PO PRN (02:05)
[2020-02-02] MEDS ORDERED: Al Hydrox/Mg Hydrox/Simet LIQ* 30 ML UDC PO PRN (02:05)
[2020-02-02] MEDS: Vitamin THERAPEUTIC TAB PO SCH (08:36)
[2020-02-02] MEDS: Venlafaxine EXT RELEASE CAP* 75 MG PO SCH (13:10)
[2020-02-02] MEDS: Venlafaxine EXT RELEASE CAP* 37.5 MG PO SCH (13:11)
[2020-02-02] MEDS: Ferrous Sulfate TAB* 325 MG PO SCH (13:12)
[2020-02-02] MEDS: Divalproex ER TAB(*) 250 MG PO SCH ×2 (13:12→19:47)
[2020-02-02] MEDS: Dicyclomine CAP* 10 MG PO SCH ×2 (13:14→19:47)
[2020-02-02] MEDS: busPIRone TAB* 10 MG PO SCH ×2 (13:15→19:47)
[2020-02-02] MEDS: Ascorbic Acid TAB* 500 MG PO SCH (13:23)
[2020-02-02] MEDS: Metoprolol Succinate XL TAB* 25 MG PO SCH (13:23)
[2020-02-02] MEDS: Levothyroxine TAB* 100 MCG TAB PO SCH (13:23)
[2020-02-02] MEDS: QUEtiapine TAB* 300 MG PO SCH (13:24)
[2020-02-02] MEDS: amLODIPine TAB* 5 MG PO SCH (13:24)
[2020-02-02] MEDS: Nicotine PATCH 14 MG/24 HR* PATCH TRANSDERM SCH (13:25)
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
[2020-02-02] MEDS: metFORMIN* 1,000 MG TAB PO SCH (18:38)
[2020-02-02] MEDS: QUEtiapine XR TAB* 200 MG PO SCH (19:46)
[2020-02-02] MEDS: Nicotine Patch Removal NOTE PATCH OFF SCH (19:49)
[2020-02-02] MEDS ORDERED: Divalproex ER TAB(*) 500 MG PO SCH (21:00)
[2020-02-03] MEDS: metFORMIN* 1,000 MG TAB PO SCH ×2 (08:22→17:44)
[2020-02-03] MEDS: amLODIPine TAB* 5 MG PO SCH (08:22)
[2020-02-03] MEDS: Levothyroxine TAB* 100 MCG TAB PO SCH (08:22)
[2020-02-03] MEDS: Ascorbic Acid TAB* 500 MG PO SCH (08:22)
[2020-02-03] MEDS: busPIRone TAB* 10 MG PO SCH ×2 (08:23→19:47)
[2020-02-03] MEDS: Dicyclomine CAP* 10 MG PO SCH ×2 (08:23→20:22)
[2020-02-03] MEDS: Ferrous Sulfate TAB* 325 MG PO SCH (08:23)
[2020-02-03] MEDS: QUEtiapine TAB* 300 MG PO SCH (08:23)
[2020-02-03] MEDS: Divalproex ER TAB(*) 250 MG PO SCH ×2 (08:23→19:47)
[2020-02-03] MEDS: Metoprolol Succinate XL TAB* 25 MG PO SCH (08:23)
[2020-02-03] MEDS: Venlafaxine EXT RELEASE CAP* 75 MG PO SCH (08:23)
[2020-02-03] MEDS: Venlafaxine EXT RELEASE CAP* 37.5 MG PO SCH (08:24)
[2020-02-03] MEDS: Vitamin THERAPEUTIC TAB PO SCH (08:24)
[2020-02-03] MEDS: Nicotine PATCH 14 MG/24 HR* PATCH TRANSDERM SCH (08:24)
[2020-02-03 08:26] LABS: HDL Cholesterol 53.1 mg/dL
[2020-02-03] MEDS: QUEtiapine XR TAB* 200 MG PO SCH (19:49)
[2020-02-03] MEDS: Naproxen TAB* 250 MG PO PRN (19:49)
[2020-02-03] MEDS: Nicotine Patch Removal NOTE PATCH OFF SCH (20:20)
[2020-02-04] MEDS: Ascorbic Acid TAB* 500 MG PO SCH (09:04)
[2020-02-04] MEDS: Venlafaxine EXT RELEASE CAP* 37.5 MG PO SCH (09:04)
[2020-02-04] MEDS: metFORMIN* 1,000 MG TAB PO SCH ×2 (09:04→20:25)
[2020-02-04] MEDS: Metoprolol Succinate XL TAB* 25 MG PO SCH (09:04)
[2020-02-04] MEDS: busPIRone TAB* 10 MG PO SCH ×2 (09:04→20:26)
[2020-02-04] MEDS: Vitamin THERAPEUTIC TAB PO SCH (09:05)
[2020-02-04] MEDS: Levothyroxine TAB* 100 MCG TAB PO SCH (09:05)
[2020-02-04] MEDS: Venlafaxine EXT RELEASE CAP* 75 MG PO SCH (09:05)
[2020-02-04] MEDS: Divalproex ER TAB(*) 250 MG PO SCH ×2 (09:06→20:25)
[2020-02-04] MEDS: Ferrous Sulfate TAB* 325 MG PO SCH (09:06)
[2020-02-04] MEDS: QUEtiapine TAB* 300 MG PO SCH (09:06)
[2020-02-04] MEDS: amLODIPine TAB* 5 MG PO SCH (09:07)
[2020-02-04] MEDS: Dicyclomine CAP* 10 MG PO SCH ×2 (09:08→20:26)
[2020-02-04] MEDS: Naproxen TAB* 250 MG PO PRN ×2 (09:09→20:25)
[2020-02-04] MEDS: Nicotine PATCH 14 MG/24 HR* PATCH TRANSDERM SCH (09:10)
--- NOTE | 2020-02-04 12:07 | PN ---
Subjective - Subjective Date of Service: 02/04/20 Service Type: 15024 Hosp care 35 min high complexity Subjective: Nursing Report: Patient was visible on unit, no behavioral incidents. Attending group activities. CC: "I am anxious" This patient was seen and evaluated today. She reported she feels safe on the unit and is interacting with peers. She reported having adequate appetite and sleep. The patient reports attending day groups. Per nursing no behavioral issues or overnight events reported. Patient reported that she is tolerating medications without side effects. Objective - General Observations Appearance: Neat Appears Stated Age: Yes Stature: WNL Posture: Slumped Eye Contact: Average Behavior/Activity: WNL - Interaction Observations Attitude Towards Examiner: Anxious Stated Mood: Anxious Affect: Restricted Speech Pattern/Tone: Appropriate Thought Process: [place] Thought Content: WNL Hallucination Type: Denies Delusion Type: Denies - Cognitive Function Orientation: A&O x 4 Level of Consciousness: Awake Estimated Intelligence: MR Range - Medication Compliance Cooperative with Inpatient Medication Regimen: Yes - Group Participation Participates in Group Activities: Yes Assessment - Assessment Merits Inpatient Hospitalization: For Immediate Safety Clinical Impression: 44 year old Female with a history of schizophrenia and bipolar disorder and Intellectual disability presented to the emergency department after she voiced suicidal ideation to a staff member and was admitted to the [facility] at [facility]. Plan - Plan Treatment Plan: Name: CRYSTAL ESPINOZA Birthdate: 1975 [id number] #Q30 minute observation with staff pass. # The patient requires psychiatric inpatient admission at this time to assure safety, receive treatment and work toward stabilization. # Collaboration with Social Work # Increase Effexor 150mg po daily Tobacco use disorder: nicotine supplement offered and put in place. #Goals before discharge include: Psychiatric Stabilization Tentative discharge Patient can return to [facility] plan for Tuesday or Tuesday Continued Medication Management: Continue Outpt Medication Medications: Current Medications Acetaminophen (Tylenol Tab*) 650 mg PO Q4H PRN PRN Reason: PAIN or TEMP > 101 F Al Hydrox/Mg Hydrox/Simethicone (Maalox Plus*) 30 ml PO Q4H PRN PRN Reason: INDIGESTION Amlodipine Besylate (Norvasc Tab*) 10 mg PO DAILY [facility] Last Admin: 02/04/20 09:07 Dose: 10 mg Ascorbic Acid (Vitamin C Tab*) 500 mg PO DAILY [facility] Last Admin: 02/04/20 09:04 Dose: 500 mg Buspirone HCl (Buspar Tab*) 10 mg PO BID [facility] Last Admin: 02/04/20 09:04 Dose: 10 mg Dicyclomine HCl (Bentyl Cap*) 10 mg PO BID [facility] Last Admin: 02/04/20 09:08 Dose: 10 mg Divalproex Sodium (Depakote Er Tab(*)) 250 mg PO QAM [facility] Last Admin: 02/04/20 09:06 Dose: 250 mg Divalproex Sodium (Depakote Er Tab(*)) 750 mg PO BEDTIME [facility] Last Admin: 02/03/20 19:47 Dose: 750 mg Ferrous Sulfate (Ferrous Sulfate Tab*) 325 mg PO DAILY [facility] Last Admin: 02/04/20 09:06 Dose: 325 mg Levothyroxine Sodium (Synthroid Tab*) 100 mcg PO DAILY@0600 [facility] Last Admin: 02/04/20 09:05 Dose: 100 mcg Metformin HCl (Glucophage*) 1,000 mg PO 0800,1800 [facility] Last Admin: 02/04/20 09:04 Dose: 1,000 mg Metoprolol Succinate (Toprol Xl Tab*) 25 mg PO DAILY [facility] Last Admin: 02/04/20 09:04 Dose: 25 mg Multivitamins (Theragran Tab*) 1 tab PO DAILY [facility] Last Admin: 02/04/20 09:05 Dose: 1 tab Naproxen (Naprosyn Tab*) 500 mg PO BID PRN PRN Reason: PAIN - MODERATE Last Admin: 02/04/20 09:09 Dose: 500 mg Nicotine (Nicotine Patch 14 Mg/24 Hr*) 1 patch TRANSDERM DAILY [facility] Last Admin: 02/04/20 09:10 Dose: 1 patch Pharmacy Profile Note (Nicotine Patch Removal Note*) 1 note PATCH OFF 2100 [facility] Last Admin: 02/03/20 20:20 Dose: 1 note Quetiapine Fumarate (Seroquel Tab*) 300 mg PO DAILY [facility] Last Admin: 02/04/20 09:06 Dose: 300 mg Quetiapine Fumarate (Seroquel Xr Tab*) 400 mg PO BEDTIME [facility] Last Admin: 02/03/20 19:49 Dose: 400 mg Venlafaxine HCl (Effexor Xr Cap*) 75 mg PO DAILY [facility] Last Admin: 02/04/20 09:05 Dose: 75 mg Venlafaxine HCl (Effexor Xr Cap*) 37.5 mg PO DAILY [facility] Last Admin: 02/04/20 09:04 Dose: 37.5 mg - Discharge Plan Discharge Plan: Inpatient Hospitalization
[2020-02-04] MEDS: QUEtiapine XR TAB* 200 MG PO SCH (20:25)
[2020-02-04] MEDS: Nicotine Patch Removal NOTE PATCH OFF SCH (22:29)
[2020-02-05] MEDS: busPIRone TAB* 10 MG PO SCH ×2 (08:48→20:38)
[2020-02-05] MEDS: Ascorbic Acid TAB* 500 MG PO SCH (08:48)
[2020-02-05] MEDS: metFORMIN* 1,000 MG TAB PO SCH ×2 (08:48→17:41)
[2020-02-05] MEDS: Ferrous Sulfate TAB* 325 MG PO SCH (08:49)
[2020-02-05] MEDS: Venlafaxine EXT RELEASE CAP* 75 MG PO SCH (08:49)
[2020-02-05] MEDS: amLODIPine TAB* 5 MG PO SCH (08:49)
[2020-02-05] MEDS: Metoprolol Succinate XL TAB* 25 MG PO SCH (08:49)
[2020-02-05] MEDS: QUEtiapine TAB* 300 MG PO SCH (08:50)
[2020-02-05] MEDS: Dicyclomine CAP* 10 MG PO SCH ×2 (08:50→20:38)
[2020-02-05] MEDS: Levothyroxine TAB* 100 MCG TAB PO SCH (08:50)
[2020-02-05] MEDS: Vitamin THERAPEUTIC TAB PO SCH (08:50)
[2020-02-05] MEDS: Nicotine PATCH 14 MG/24 HR* PATCH TRANSDERM SCH (08:50)
[2020-02-05] MEDS: Divalproex ER TAB(*) 250 MG PO SCH ×2 (08:51→20:39)
[2020-02-05] MEDS: Naproxen TAB* 250 MG PO PRN (08:51)
--- NOTE | 2020-02-05 12:20 | PN ---
Subjective - Subjective Date of Service: 02/05/20 Service Type: 28809 Hosp care 35 min high complexity Subjective: Nursing Report: Patient was visible on unit, no behavioral incidents. Slept ~ 6hrs overnight. CC: "Okay" This patient was seen and evaluated today. She ate breakfast and was seen interacting with peers. She reported having adequate sleep. The patient reported attending some day groups. Per nursing no behavioral issues or overnight events reported. Patient reported that she is tolerating medications without side effects. Objective - General Observations Appearance: Well Groomed Appears Stated Age: Yes Stature: Overweight Posture: Slumped Eye Contact: Average Behavior/Activity: Peculiar - Interaction Observations Attitude Towards Examiner: Cooperative Stated Mood: Euthymic Affect: Restricted Speech Pattern/Tone: Appropriate, Normal Volume Thought Process: Coherent Thought Content: WNL Hallucination Type: None Delusion Type: None - Cognitive Function Orientation: A&O x 4 Level of Consciousness: Awake Estimated Intelligence: MR Range Insight: WNL - Medication Compliance Cooperative with Inpatient Medication Regimen: Yes - Group Participation Participates in Group Activities: Partial Assessment - Assessment Merits Inpatient Hospitalization: For Immediate Safety Clinical Impression: 44 year old Female with a history of schizophrenia and bipolar disorder and Intellectual disability presented to the emergency department after she voiced suicidal ideation to a staff member and was admitted to the [facility] at [facility]. Plan - Plan Treatment Plan: Name: CRYSTAL ESPINOZA Birthdate: 1975 [id number] #Q30 minute observation with staff pass. # The patient requires psychiatric inpatient admission at this time to assure safety, receive treatment and work toward stabilization. # Collaboration with Social Work # Continue Effexor 150mg po daily Tobacco use disorder: nicotine supplement offered and put in place. #Goals before discharge include: Psychiatric Stabilization Tentative discharge Patient can return to [facility] plan for discharge Tuesday Continued Medication Management: Continue Outpt Medication Medications: Current Medications Acetaminophen (Tylenol Tab*) 650 mg PO Q4H PRN PRN Reason: PAIN or TEMP > 101 F Al Hydrox/Mg Hydrox/Simethicone (Maalox Plus*) 30 ml PO Q4H PRN PRN Reason: INDIGESTION Amlodipine Besylate (Norvasc Tab*) 10 mg PO DAILY [facility] Last Admin: 02/05/20 08:49 Dose: 10 mg Ascorbic Acid (Vitamin C Tab*) 500 mg PO DAILY [facility] Last Admin: 02/05/20 08:48 Dose: 500 mg Buspirone HCl (Buspar Tab*) 10 mg PO BID [facility] Last Admin: 02/05/20 08:48 Dose: 10 mg Dicyclomine HCl (Bentyl Cap*) 10 mg PO BID [facility] Last Admin: 02/05/20 08:50 Dose: 10 mg Divalproex Sodium (Depakote Er Tab(*)) 250 mg PO QAM [facility] Last Admin: 02/05/20 08:51 Dose: 250 mg Divalproex Sodium (Depakote Er Tab(*)) 750 mg PO BEDTIME [facility] Last Admin: 02/04/20 20:25 Dose: 750 mg Ferrous Sulfate (Ferrous Sulfate Tab*) 325 mg PO DAILY [facility] Last Admin: 02/05/20 08:49 Dose: 325 mg Levothyroxine Sodium (Synthroid Tab*) 100 mcg PO DAILY@0600 [facility] Last Admin: 02/05/20 08:50 Dose: 100 mcg Metformin HCl (Glucophage*) 1,000 mg PO 0800,1800 [facility] Last Admin: 02/05/20 08:48 Dose: 1,000 mg Metoprolol Succinate (Toprol Xl Tab*) 25 mg PO DAILY [facility] Last Admin: 02/05/20 08:49 Dose: 25 mg Multivitamins (Theragran Tab*) 1 tab PO DAILY [facility] Last Admin: 02/05/20 08:50 Dose: 1 tab Naproxen (Naprosyn Tab*) 500 mg PO BID PRN PRN Reason: PAIN - MODERATE Last Admin: 02/05/20 08:51 Dose: 500 mg Nicotine (Nicotine Patch 14 Mg/24 Hr*) 1 patch TRANSDERM DAILY [facility] Last Admin: 02/05/20 08:50 Dose: 1 patch Pharmacy Profile Note (Nicotine Patch Removal Note*) 1 note PATCH OFF 2100 [facility] Last Admin: 02/04/20 22:29 Dose: 1 note Quetiapine Fumarate (Seroquel Tab*) 300 mg PO DAILY [facility] Last Admin: 02/05/20 08:50 Dose: 300 mg Quetiapine Fumarate (Seroquel Xr Tab*) 400 mg PO BEDTIME [facility] Last Admin: 02/04/20 20:25 Dose: 400 mg Venlafaxine HCl (Effexor Xr Cap*) 150 mg PO DAILY [facility] Last Admin: 02/05/20 08:49 Dose: 150 mg - Discharge Plan Discharge Plan: Inpatient Hospitalization
[2020-02-05] MEDS: QUEtiapine XR TAB* 200 MG PO SCH (20:40)
[2020-02-05] MEDS: Nicotine Patch Removal NOTE PATCH OFF SCH (20:42)
[2020-02-06] MEDS: Levothyroxine TAB* 100 MCG TAB PO SCH (08:23)
[2020-02-06] MEDS: metFORMIN* 1,000 MG TAB PO SCH (08:24)
[2020-02-06] MEDS: Venlafaxine EXT RELEASE CAP* 75 MG PO SCH (08:27)
[2020-02-06] MEDS: Vitamin THERAPEUTIC TAB PO SCH (08:28)
[2020-02-06] MEDS: Divalproex ER TAB(*) 250 MG PO SCH (08:28)
[2020-02-06] MEDS: Naproxen TAB* 250 MG PO PRN (08:28)
[2020-02-06] MEDS: Metoprolol Succinate XL TAB* 25 MG PO SCH (08:28)
[2020-02-06] MEDS: amLODIPine TAB* 5 MG PO SCH (08:28)
[2020-02-06] MEDS: busPIRone TAB* 10 MG PO SCH (08:28)
[2020-02-06] MEDS: Ferrous Sulfate TAB* 325 MG PO SCH (08:28)
[2020-02-06] MEDS: Ascorbic Acid TAB* 500 MG PO SCH (08:28)
[2020-02-06] MEDS: Dicyclomine CAP* 10 MG PO SCH (08:29)
[2020-02-06] MEDS: QUEtiapine TAB* 300 MG PO SCH (08:29)
[2020-02-06] MEDS: Nicotine PATCH 14 MG/24 HR* PATCH TRANSDERM SCH (08:29)
[2020-02-06 09:25] VITALS: BP 120/68
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
[2020-02-06] MEDS ORDERED: PPD test dose* 5 TU/0.1 ML TEST (*USE PPD ORDER SET*) INTRADERM ONE (14:00)
[2020-02-08] MEDS ORDERED: PPD Reading NOTE* (*USE PPD ORDER SET*) ONE (14:00)
== END 2020-02-06 14:00 | disposition home or self-care (01) | DRG 751 ==
LOC: ED 21:49 → BSU 02-02 02:07
PROVIDERS: ADMIT Psychiatry & Neurology Addiction Psychiatry; ATTEND Psychiatry & Neurology Addiction Psychiatry
DX: F33.3 Major depressive disorder, recurrent, severe with psychotic symptoms (principal); R45.851 Suicidal ideations; F41.1 Generalized anxiety disorder; F43.10 Post-traumatic stress disorder, unspecified; F17.210 Nicotine dependence, cigarettes, uncomplicated; I10 Essential (primary) hypertension; E03.9 Hypothyroidism, unspecified; R19.7 Diarrhea, unspecified; F79 Unspecified intellectual disabilities; Z79.899 Other long term (current) drug therapy; Z81.8 Family history of other mental and behavioral disorders
CPT/HCPCS: 36415; 80053; 80061; 80164; 80307; 80320; 80329; 81003; 83036; 84443; 84702; 85025; 87086; 99222; 99233; 99238; 99285; A9270-GY; G0480

== ENCOUNTER 2020-02-25 14:45 | Emergency (ER) | payer MEDICAID ==
[2020-02-25 15:36] LABS: Urine Appearance Clear; Urine Bilirubin Negative (Negative); Urine Blood 3+ (Negative); Urine Color Yellow; Urine Glucose 3+(>=500 mg/dL) (Negative); Urine Ketones 1+ (Negative); Urine Nitrite Negative (Negative); Urine Protein Negative (Negative); Urine Specific Gravity 1.026 (1.010-1.030); Urine Urobilinogen Negative (Negative)
[2020-02-25 15:52] LABS: Urine Benzodiazepine Screen None Detected (None Detect); Urine Opiates Screen None Detected (None Detect)
[2020-02-25 16:02] LABS: Urine Bacteria Absent (Absent); Urine Red Blood Cell Trace(0-2/hpf) (Absent); Urine Squamous Epithelial Cell Present (Absent); Urine White Blood Cell Trace(0-5/hpf) (Absent)
[2020-02-25 17:07] LABS: ABS Basophils 0.1 10^3/ul (0-0.2); ABS Eosinophils 0.1 10^3/ul (0-0.6); ABS Lymphocytes 2.1 10^3/ul (1.0-4.8); ABS Monocytes 0.4 10^3/ul (0-0.8); Eosinophil % 1.3 %; Hematocrit 37 % (35-47); Hemoglobin 12.3 g/dL (12.0-16.0); Lymphocyte % 23.3 %; Mean Corpuscular HGB Conc 33 g/dL (31-36); Mean Corpuscular Hemoglobin 28 pg (27-31); Mean Corpuscular Volume 85 fL (80-97); Mean Platelet Volume 7.6 fL (7.4-10.4); Platelet Count 291 10^3/uL (150-450); Red Blood Count 4.37 10^6 /uL (3.70-4.87); Red Cell Distribution Width 13 % (10-15)
[2020-02-25 17:24] LABS: ALT 11 U/L (7-52); AST 10 U/L (13-39); Albumin 4.2 g/dL (3.2-5.2); Albumin/Globulin Ratio 1.6 (1-3); Alkaline Phosphatase 105 U/L (34-104); Anion Gap 9 mmol/L (2-11); BUN/Creatinine Ratio 16.9 (8-20); Blood Urea Nitrogen 14 mg/dL (6-24); CO2 Carbon Dioxide 23 mmol/L (22-32); Calcium 9.6 mg/dL (8.6-10.3); Chloride 100 mmol/L (101-111); EGFR African American 91.2 (>60); EGFR Non-African American 75.4 (>60); Globulin 2.7 g/dL (2-4); Glucose 263 mg/dL (70-100); Potassium 4.2 mmol/L (3.5-5.0); Sodium 132 mmol/L (135-145); Total Protein 6.9 g/dL (6.4-8.9)
[2020-02-25 17:30] LABS: HCG Pregnancy < 0.60 mIU/mL
[2020-02-25 17:45] LABS: Acetaminophen < 15 mcg/mL; Alcohol, S < 10 mg/dL (<10); Salicylate < 2.50 mg/dL (<30)
[2020-02-25 17:55] VITALS: BP 155/102
[2020-02-25 17:58] LABS: TSH (Thyroid Stimulating Horm) 1.89 mcIU/mL (0.34-5.60)
== END 2020-02-25 17:54 | disposition home or self-care (01) ==
LOC: ED 14:45